=== PATIENT | male | born 1970 | race Two or more races ===

== ENCOUNTER → 2024-01-28 | Outpatient (CLI) | payer BC | END | disposition home or self-care (01) | LOC: LAB 10:00 | PROVIDERS: ATTEND Family Medicine | DX: D48.5 Neoplasm of uncertain behavior of skin (principal) ==

== ENCOUNTER → 2024-10-20 | Day surgery (SDC) | payer BC ==
[2024-10-18 14:53] LABS: INR 0.97 (0.9-1.15); Partial Thromboplastin Time 23.9 SEC (24.5-34.5); Prothrombin Time 10.3 sec (9.3-11.8)
[2024-10-18 14:55] LABS: Alanine Aminotransferase 29 U/L (7-40); Alkaline Phosphatase 80 U/L (46-116); Anion Gap 8 (5-15); Aspartate Aminotransferase 18 U/L (13-40); BUN/Creatinine Ratio 11.5 (10.0-20.0); Blood Urea Nitrogen 11 mg/dL (9-23); Carbon Dioxide 27 mmol/L (20-31); Chloride 105 mmol/L (98-107); Glucose 92 mg/dL (74-106); Potassium 3.8 mmol/L (3.5-5.1); Sodium 140 mmol/L (136-145); Total Protein 7.2 g/dL (5.7-8.2)
[2024-10-18 14:56] LABS: Calcium 11.3 mg/dL (8.7-10.4)
[2024-10-18 15:00] LABS: Basophils # (auto) 0 10 ^3/uL (0-0.2); Basophils % (auto) 0.5 % (0.0-2.0); Eosinophils # (auto) 0.1 10 ^3/uL (0-0.8); Eosinophils % (auto) 1.4 % (0.0-7.0); Hematocrit 47.1 % (41.0-53.0); Hemoglobin 16.4 g/dL (13.5-17.5); Lymphocytes # (auto) 1.6 10 ^3/uL (0.4-5.4); Lymphocytes % (auto) 22.4 % (10.0-50.0); Mean Corpuscular Hemoglobin 32.8 pg (28.0-32.0); Mean Corpuscular Hgb Conc. 34.9 g/dL (32.0-36.0); Mean Corpuscular Volume 93.9 fL (80.0-100.0); Monocytes # (auto) 0.5 10 ^3/uL (0-1.3); Monocytes % (auto) 6.7 % (0.0-12.0); Neutrophils # (auto) 4.9 10 ^3/uL (1.6-8.6); Nucleated Red Blood Cells % 0.1 %; Platelet Count (auto) 256 10^3/uL (140-450); Red Blood Cells 5.01 10^6/uL (4.5-5.90); Red Cell Distribution Width 12.6 % (11.8-14.3); White Blood Cell 7.2 10^3/uL (4.4-10.8)
[~2024-10-20] VITALS: Ht 177.8 cm; Wt 88.5 kg
[~2024-10-20] MED LIST: SODIUM CHLORIDE LOCK 10 ML ONE
[2024-10-20 11:25] VITALS: O2SAT 100
[2024-10-20] MEDS: MIDAZOLAM HCL 5 MG/ML-1ML VIAL ONE (11:32)
[2024-10-20] MEDS: fentaNYL CITRATE 100 MCG/2 ML VL ONE ×2 (11:32→11:42)
[2024-10-20] MEDS: diphenhdrAMINE HCL 50 MG/1 ML VL ONE (11:32)
[2024-10-20 11:58] VITALS: PULSE 73; RESP 20; TEMP 98.9
--- NOTE | 2024-10-20 12:00 | DVHOP2 ---
Operative Report DATE OF OPERATION: 10/20/24 PROCEDURE: Colonoscopy with hot snare polypectomy. PREOPERATIVE INDICATION: The patient is a 54 -year-old male undergoing colonoscopy for screening with personal history of ulcerative colitis that is in remission POSTOPERATIVE DIAGNOSES: 1. There were two 5-6 mm benign-appearing descending colon polyps were seen and removed by hot snare polypectomy 2. There was a 3-4 mm benign-appearing rectal polyp that was seen and removed by hot snare polypectomy 3. Patient had multiple benign-appearing transverse colon pseudopolyps several of which were removed by cold biopsy forceps 4. Dkhl-md-[id number] sigmoid diverticular disease 5. 1+ internal hemorrhoids otherwise normal examination up to the cecum PROCEDURE PERFORMED BY: Jason Simpson M.D. SCOPE: Olympus videocolonoscope. ASA CLASS: 2. PREOPERATIVE MEDICATIONS: Versed 5 mg, Fentanyl 150 mcg, Benadryl 50 mg PROCEDURE IN DETAIL: After obtaining an informed consent, the patient was placed on left lateral decubitus position. He was then sedated with the above medications. A rectal examination was performed that was normal. The colonoscope was then passed through the anus into the rectosigmoid and through the descending, transverse, and ascending colon up to the cecum with visualization of the appendiceal orifice, base of the cecum and the ileocecal valve. The colonoscope was then withdrawn. No masses or colitis were seen Patient had multiple small benign-appearing transverse colon pseudopolyps residual from his previous ulcerative colitis Multiple polyps were removed by cold biopsy forceps. In the descending colon patient had two less than 1 cm benign-appearing polyps These were removed by hot snare polypectomy There was another 3-4 mm benign- appearing rectal polyp that was seen and removed by hot snare polypectomy On retroflexion and straight on view the patient had 1+ internal The patient tolerated the procedure well without difficulty. WITHDRAWAL TIME: 11 minutes QUALITY OF THE PREP: [place] Bowel Prep score: 9. COMPLICATIONS : None SPECIMENS: Descending colon polyps Transverse colon polyps Rectal polyp DISPOSITION: Stable D/C to home PLAN: 1. Repeat colonoscopy base on biopsy result likely in 3-5 years 2. Resume GI soft diet advance as tolerated 3. Local anorectal hemorrhoidal care 4. Increase fluid and fiber intake 5. Hold aspirin NSAIDs for 5-7 days 6. Outpatient follow up with me in 4-6 weeks to review results and discuss further management JASON SIMPSON MD Oct 20, 2024 12:00
[2024-10-20 12:28] VITALS: BP 117/82; PULSE 70; RESP 18; O2SAT 95
== END | disposition home or self-care (01) ==
LOC: GI 09:33
PROVIDERS: ATTEND Internal Medicine Gastroenterology
DX: Z12.11 Encounter for screening for malignant neoplasm of colon (principal); D12.4 Benign neoplasm of descending colon; D12.3 Benign neoplasm of transverse colon; K62.1 Rectal polyp; K57.30 Diverticulosis of large intestine without perforation or abscess without bleeding; K64.8 Other hemorrhoids; Z98.52 Vasectomy status; Z90.89 Acquired absence of other organs
CPT/HCPCS: 36415; 45380; 45385; 80053; 85025; 85610; 85730; 88305; J1200; J2250; J3010; J7030; 99152

== ENCOUNTER 2025-04-17 06:44 | Outpatient (CLI) | payer BC ==
[2025-04-17 07:38] LABS: Alanine Aminotransferase 23 U/L (7-40); Alkaline Phosphatase 82 U/L (46-116); Anion Gap 9 (5-15); BUN/Creatinine Ratio 7.4 (10.0-20.0); Carbon Dioxide 29 mmol/L (20-31); Chloride 106 mmol/L (98-107); Cholesterol 200 mg/dL (< 200); Glucose 95 mg/dL (74-106); HDL Cholesterol 48 mg/dL (40-59); Potassium 4.3 mmol/L (3.5-5.1); Sodium 144 mmol/L (136-145); Total Protein 7.4 g/dL (5.7-8.2); Triglycerides 135 mg/dL (< 150)
[2025-04-17 07:39] LABS: Bilirubin, Total 1.0 mg/dL (0.2-1.0)
[2025-04-17 07:41] LABS: Albumin 4.9 g/dL (3.2-4.8); Blood Urea Nitrogen 8 mg/dL (9-23); Calcium 10.8 mg/dL (8.7-10.4)
[2025-04-18 11:07] LABS: Anti-Nuclear Antibody Direct Negative (Negative); Anti-dsDNA Antibody 5 IU/mL (0-9); Antiscleroderma-70 Antibody <0.2 AI (0.0-0.9); Sjogren's Anti-SS-A Antibody <0.2 AI (0.0-0.9); Sjogren's Anti-SS-B Antibody <0.2 AI (0.0-0.9)
== END 2025-04-17 17:00 | disposition home or self-care (01) ==
LOC: LAB 06:44
PROVIDERS: ATTEND Internal Medicine
DX: E83.52 Hypercalcemia (principal); R97.20 Elevated prostate specific antigen [PSA]
CPT/HCPCS: 36415; 80053; 80061; 82306; 83655; 83970; 86160; 86225; 86235; 86376; 86431

== ENCOUNTER → 2025-05-22 | Outpatient (CLI) | payer BC | END | disposition home or self-care (01) | LOC: LAB 06:28 | PROVIDERS: ATTEND Internal Medicine | DX: R78.71 Abnormal lead level in blood (principal) | CPT/HCPCS: 83655 ==